=== PATIENT | female | born 1995 | race Caucasian/White ===

== ENCOUNTER 2022-05-20 10:05 | Outpatient (REF) | payer OTHER, SELFPAY ==
--- NOTE | ~2022-05-20 | US_ITS ---
EXAMINATION: US ABDOMEN COMPLETE CLINICAL INFORMATION: Abdominal bloating. Abdominal discomfort. COMPARISON: None TECHNIQUE: Real-time imaging of the abdominal viscera. FINDINGS: PANCREAS: Normal. ABDOMINAL AORTA: The proximal, mid, and distal segments are normal in caliber. INFERIOR VENA CAVA: Visualized portions are normal. LIVER: Normal. The liver is normal in size. The liver contour is normal. Parenchymal echogenicity is normal. No focal hepatic lesion. There is no intrahepatic biliary duct dilatation seen. GALLBLADDER: Normal. The gallbladder is physiologically distended without evidence of stones, sludge, polyps, wall thickening or pericholecystic fluid. COMMON BILE DUCT: Normal in caliber measuring 0.34 cm in diameter. RIGHT KIDNEY: Normal. No hydronephrosis. No renal calculi or focal parenchymal lesions. The kidney measures 10.3 cm in maximum dimension. LEFT KIDNEY: Normal. No hydronephrosis. No renal calculi or focal parenchymal lesions. The kidney measures 10.0 cm in maximum dimension. SPLEEN: Normal. The spleen measures 11.1 cm in maximum dimension. FREE FLUID: None. US/US abdomen complete IMPRESSION: Unremarkable abdominal ultrasound. No significant abnormality demonstrated by ultrasound.
== END 2022-05-20 10:06 | disposition home or self-care (01) ==
LOC: HO.US 10:05
PROVIDERS: Visit Provider Internal Medicine
DX: R10.84 Generalized abdominal pain (principal); R14.0 Abdominal distension (gaseous)
CPT/HCPCS: 76700

== ENCOUNTER 2022-06-06 11:24 | Day surgery (SDC) | payer OTHER, SELFPAY ==
--- NOTE | 2022-06-06 11:33 | HO.ANESPROP2 ---
HPI - Anesthesia Eval Consult details Narrative: 27yo female patient for EGD PMFSH Active Problems Active Problems: ?LINDSAY. Not tested but aware of symptoms as all her family members have LINDSAY Increased BMI Past Medical History Medical History ADHD Depression GERD (gastroesophageal reflux disease) IBS (irritable bowel syndrome) Family History Family history of problems with anesthesia: No Surgical History Surgical History (Updated 06/06/22 @ 11:45 by Ewa Bailey MD) History of breast augmentation History of tonsillectomy and adenoidectomy S/P myringotomy with insertion of tube History of Problems with Anesthesia: Yes (Ponv) Social History Social History (Updated 06/06/22 @ 11:47 by Ewa Bailey MD) Patient Tobacco Use Status: Never used Tobacco Use of substances other than those prescribed or required for medical reasons: Yes Substance Use Type: Marijuana Substance Use Frequency: Daily Last Used Substance: Days (ago) Are you DNR?: No Advance Directives: No Advance Directives Information Provided: Yes Meds Allergies Allergy/AdvReac Type Severity Reaction Status Date / Time No Known Allergies Allergy Verified 06/02/22 07:59 Active Medications: Current Medications Lactated Ringer's (Lr) 1,000 mls @ 100 mls/hr IVCONT .Q10H ILIANA Home Medications Medication Instructions Recorded Confirmed Last Taken Type omeprazole 20 mg capsule,delayed 20 mg PO DAILY 06/02/22 06/02/22 Unknown History release venlafaxine 150 mg 150 mg PO DAILY 06/02/22 06/02/22 Unknown History capsule,extended release 24 hr Exam Exam Date and Time: June 06, 2022 1133 Height,Weight and Vital Signs: Height 5 ft 4 in Weight 81.647 kg Vital Signs Temp Pulse Resp BP Pulse Ox O2 Del Method 06/06/22 11:47 97.4 F 80 16 130/82 98 Room Air Pertinent Lab Results Pertinent Lab Results: Lab Results 06/06/22 Range/Units 11:28 Urine Test NEGATIVE (NEGATIVE) Airway Mallampati Class: II TM Dist: >3cm Neck ROM: Full Loose/Missing/Broken Teeth: No (Denies broken, missing, loose teeth) Heart: RRR Lungs: CTAB Assessment and Plan Assessment Anesthesia Assessment: Anesthesia Plan Discussed and Chart Reviewed Final Anesthetic Review Family History of Problems with Anesthesia: No History of Problems with Anesthesia: Yes (Ponv) NPO: Yes ASA Class: II Final Preanesthetic Review: No Changes in Pt Med Stat, Meds/Allgs Chart Reviewed, Consent Obtained/Reviewed and Anes Risks/Benef Reviewed Patient Risk: Low Procedure Risk: Low Assessment/Block/Sedation in SS: Assess/Block/Sedation-SS Anesthetic Plan Anesthetic Plan: MAC: Disposition: Standard PACU
[2022-06-06 11:40] VITALS: BMI 30.9
[2022-06-06 11:47] VITALS: BP 130/82; PULSE 80; RESP 16; TEMP 36.3; O2SAT 98
[2022-06-06] MEDS: Lactated Ringers 1,000 ML 100 ML IVCONT (11:55)
[2022-06-06 12:17] LABS: UPreg QC Valid YES; Urine Pregnancy NEGATIVE (NEGATIVE)
--- NOTE | 2022-06-06 13:03 | P.BOP_ITS ---
Brief Operative Note Date of Service: 06/06/22 Pre-op diagnosis: GERD Post-op diagnosis: other (Hiatal hernia, same) Procedure: EGD with biopsies Surgeon: Chet Ivan Anesthesia: MAC Was an Orthotics Prosthetics Technician used for this Procedure?: No Estimated blood loss (mL): 2.0 Pathology: other (A. Descending duodenum B. Gastric antrum C. EG Junction at 33cm) Condition: stable Disposition: PACU
[2022-06-06 13:04] VITALS: BP 103/62; PULSE 70; RESP 20; TEMP 36.6; O2SAT 97
[2022-06-06 13:19] VITALS: BP 106/85; PULSE 63; RESP 20; O2SAT 98
[2022-06-06 13:34] VITALS: BP 123/96; PULSE 81; RESP 18; TEMP 37.5; O2SAT 100
--- NOTE | 2022-06-06 23:13 | OP_ITS ---
SURGEON: Chet Ivan MD INDICATIONS: The patient presents for evaluation of gastroesophageal reflux and abdominal discomfort. Full consent has been obtained from her for this, including risks of bleeding and perforation. PREOPERATIVE DIAGNOSIS: POSTOPERATIVE DIAGNOSIS: PROCEDURE PERFORMED: Esophagogastroduodenoscopy with biopsies. ESTIMATED BLOOD LOSS: COMPLICATIONS: ANESTHESIA: Monitored anesthesia care. ASSISTANTS: SPECIMENS: PREOPERATIVE DIAGNOSES: Gastroesophageal reflux and abdominal discomfort. POSTOPERATIVE DIAGNOSES: Gastroesophageal reflux and abdominal discomfort, hiatal hernia, rule out celiac disease, rule out Helicobacter pylori. Medication used. DESCRIPTION OF PROCEDURE: The patient was placed in the left lateral decubitus position. The Olympus video gastroscope was passed in the posterior oropharynx and upper esophagus under direct vision. The scope was passed slowly to the distal esophagus. The gastroesophageal junction appeared at 33 cm. There was evidence of some irregularity consistent with reflux, but no evidence of esophagitis nor any definitive evidence of Diaz mucosa. There was a moderate-sized hiatal hernia. The hiatal hernia mucosa appeared normal. The scope was advanced to the pylorus and the duodenum was cannulated to the descending portion. The duodenum including the bulb appeared normal without mass or ulceration. Biopsies were obtained from the 2nd and 3rd portions of duodenum. The scope was withdrawn back to the stomach. The gastric antrum and body appeared normal with good peristalsis. Biopsies were obtained from the gastric antrum. The scope was retroflexed visualizing the proximal stomach carefully which appeared normal, without any sign of mass or ulceration. Scope was straightened and withdrawn back to the esophagus. Biopsies were obtained at the EG junction at 33 cm. Proximal to this, the esophageal mucosa appeared normal. The scope was withdrawn from the patient. She tolerated the procedure well and was returned to the recovery area in stable condition. IMPRESSION: 1. Hiatal hernia, gastroesophageal reflux. 2. Rule out celiac disease. 3. Rule out Helicobacter pylori. PLAN: The results of the biopsies will be checked. She will continue her daily Prilosec for symptomatic relief of reflux. She has been using some dicyclomine p.r.n., which she does think is helping her abdominal bloating and discomfort. A recent abdominal ultrasound was negative for gallstones or any other pathology. She has been instructed to see me again in several months for a followup visit as well. MD CARLOS Mckeon/KIERA / [id number] MTDD
== END 2022-06-06 14:16 | disposition home or self-care (01) ==
PROVIDERS: Nurse Practitioner; PCP Nurse Practitioner; Visit Provider Internal Medicine
PROC: 0DJ08ZZ Inspection of Upper Intestinal Tract, Via Natural or Artificial Opening Endoscopic (ICD-10-PCS; CPT 43235; principal; 2022-06-06 12:30)
DX: K21.9 Gastro-esophageal reflux disease without esophagitis (principal); K58.0 Irritable bowel syndrome with diarrhea; R10.84 Generalized abdominal pain; K44.9 Diaphragmatic hernia without obstruction or gangrene; F90.9 Attention-deficit hyperactivity disorder, unspecified type; F32.A Depression, unspecified; Z79.899 Other long term (current) drug therapy; F12.90 Cannabis use, unspecified, uncomplicated
CPT/HCPCS: 43239; 81025; 88305; 88342; J2405